=== PATIENT | male | born 2000 | race Caucasian/White ===

== ENCOUNTER 2021-03-26 18:24 | Emergency (ER) | payer BC ==
[~2021-03-26] VITALS: Ht 188 cm; Wt 93.0 kg
[2021-03-26 18:29] VITALS: BP 132/79
--- OUTSIDE RECORDS SUMMARY | 2021-03-26 18:31 | XMS REPORT | Clinical Summary ---
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
--- NOTE | 2021-03-26 18:41 | ED Lower Extremity ---
General Stated Complaint: L LEG INJ Source: patient History of Present Illness Date Seen by Provider: Mar 26, 2021 Time Seen by Provider: 18:29 Initial Comments PT ARRIVES VIA POV FROM HOME WITH GIRLFRIEND PT STATES AROUND 1800 TONIGHT, HE FELL OUT OF A HAMMOCK--FELL APPROXIMATELY 5-6 FEET AND LANDED ON DIRT, HITTING HIS LEFT ANKLE ON WOODEN RAILING DID NOT HIT HEAD AND NO LOSS OF CONSCIOUSNESS ONLY C/O PAIN TO ANTERIOR ASPECT OF LEFT ANKLE HAS MINOR ABRASIONS TO LEFT KNEE AND ANTERIOR LEFT ANKLE. 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 [employer] Allergies and Home Medications Allergies Coded Allergies: No Known Drug Allergies (Unverified , 03/26/21) Patient Home Medication List Home Medication List Reviewed: Yes Naproxen (Naproxen) 500 Mg Tablet.dr, 500 MG PO BID Prescribed by: MAGALIS SONG on 03/26/211906 Review of Systems Constitutional: no symptoms reported EENTM: no symptoms reported Respiratory: no symptoms reported Cardiovascular: no symptoms reported Gastrointestinal: no symptoms reported Genitourinary: no symptoms reported Musculoskeletal: see HPI Skin: see HPI Psychiatric/Neurological: No Symptoms Reported; Denies Headache, Denies Numbness, Denies Paresthesia, Denies Tingling, Denies Weakness Past Zppoyzc-Ordnkv-Kwitcl Hx Patient Social History Tobacco Use?: No Substance use?: Yes Substance type: Marijuana Alcohol Use?: Yes Immunizations Up To Date Tetanus Booster (TDap): Less than 5yrs Past Medical History Surgeries: No Respiratory: No Cardiac: No Neurological: No Genitourinary: No Gastrointestinal: No Musculoskeletal: No Endocrine: No HEENT: No Cancer: No Psychosocial: No Integumentary: No Blood Disorders: No Physical Exam Vital Signs Vital Signs - First Documented 03/26/21 18:29 Temp 36.4 Pulse 80 Resp 20 B/P (MAP) 132/79 (96) Pulse Ox 100 O2 Delivery Room Air Capillary Refill : Height, Weight, BMI Height: '" Weight: lbs. oz. kg; BMI Method: General Appearance: WD/WN, no apparent distress, other (WHEELCHAIR ON ARRIVAL) Neck: non-tender, full range of motion Cardiovascular: normal peripheral pulses, regular rate, rhythm, no murmur Respiratory: chest non-tender, normal breath sounds Gastrointestinal: non tender, soft Back: normal inspection, no CVA tenderness, no vertebral tenderness Hips: bilateral hip normal inspection Legs: right leg normal inspection (EXCEPT FOR TINY ABRASION TO LEFT ANTERIOR MID THIGH. NO SWELLING OR BRUISING OR BLEEDING. NO TENDERNESS. FULL ROM. ) Knees: right knee normal inspection; left knee other (MINOR ABRASION TO LEFT KNEE. NO BLEEDING. FULL ROM WITHOUT DIFFICULTY. NO SWELLING OR BRUISING. NO BONY TENDERNESS ) Ankles: right ankle normal inspection; left ankle other (ANTERIOR ASPECT OF LEFT ANKLE WITH MILD ABRASION, SLIGHT BRUISING AND SWELLING. TENDERNESS TO ANTERIOR ASPECT OF LEFT ANKLE. LIMITED ROM AT ANKLE DUE TO PAIN, BUT DISTAL ROM OF FOOT AND TOES IS NORMAL. SENSORY / VASCULAR INTACT. ) Feet: right foot normal inspection; left foot other ( ABOVE--NO OBVIOUS INJURY TO LEFT FOOT.) Neurologic/Tendon: normal sensation, normal motor functions, normal tendon functions Neurologic/Psychiatric: communication assistant II-XII nml as tested, no motor/sensory deficits, alert, normal mood/affect, oriented x 3 Skin: normal color, warm/dry, other ( ABOVE) Procedures/Interventions Splinting and Joint Reduction : Vishal wrap: Yes Immobilizers: Step Light Walker s/m/lg Progress/Results/Core Measures Results/Orders My Orders Orders - NOHEMI,MAGALIS K DO Tibia/Fibula, Left, 2 Views (03/26/21 18:35) Foot, Left, 3 Views (03/26/21 18:35) Ankle, Left, 3 Views (03/26/21 18:35) Vishal Bandage (03/26/21 19:07) Wound Dressing-Ed (03/26/21 19:07) Steplite (03/26/21 19:07) Rx-Naproxen (Rx-Naprosyn) (03/26/21 19:07) Vital Signs/I&O 03/26/21 18:29 Temp 36.4 Pulse 80 Resp 20 B/P (MAP) 132/79 (96) Pulse Ox 100 O2 Delivery Room Air Diagnostic Imaging Comments XRAYS PER RADIOLOGIST REPORTS AT 1901 LEFT TIB-FIB-- IMPRESSION: Negative radiographs of left lower leg. LEFT ANKLE-- IMPRESSION: Negative radiographs of left ankle. LEFT FOOT-- IMPRESSION: Negative radiographs of the left foot. Reviewed: Reviewed by Me Departure Impression Primary Impression: LEFT ANKLE SPRAIN AND CONTUSION Additional Impressions: Minor abrasion S/P FALL FROM HAMMOCK Disposition: 01 HOME, SELF-CARE Condition: Stable Departure-Patient Inst. Decision time for Depature: 19:02 Referrals: ROMEO WHITESIDE MD Patient Instructions: Ankle Sprain (DC), Contusion (DC), How to Use an Elastic Bandage, Skin Abrasions (DC), Walking Boot Add. Discharge Instructions: ICE TO AREA AT 20 MINUTE INTERVALS ELEVATE FOOT MUCH POSSIBLE WEAR BOOT NEEDED FOR COMFORT TYLENOL NEEDED FOR PAIN FOLLOW UP WITH [facility]SU CLINIC IN 5-7 DAYS FOR RECHECK/FURTHER CARE Scripts Naproxen (Naproxen) 500 Mg Tablet. 500 MG PO BID, #20 TAB Prov: MAGALIS SONG DO 03/26/21 MAGALIS SONG DO Mar 26, 2021 18:41
--- NOTE | 2021-03-26 18:59 | Diagnostic Imaging Report ---
INDICATION: Leg pain. Fall from hammock. FINDINGS: AP and lateral views of the left lower leg demonstrate no cortical disruption of the left tibia or fibula. There is no suspicious bone lesion. Alignment at the knee and ankle is grossly unremarkable. There is no soft tissue gas or radiodense foreign body. IMPRESSION: Negative radiographs of left lower leg. Dictated by: Dictated on workstation # [id number]
--- NOTE | 2021-03-26 19:00 | Diagnostic Imaging Report ---
EXAMINATION: Left ankle series. INDICATION: Ankle pain. Fall from hammock. FINDINGS: The distal tibia and fibula are unremarkable without cortical disruption. There is no widening of the ankle mortise. Talar dome is normal in morphology. The visualized portion of the hindfoot demonstrates no acute process. There ia a probable os cuboideum. IMPRESSION: Negative radiographs of left ankle. Dictated by: Dictated on workstation # [id number]
--- NOTE | 2021-03-26 19:01 | Diagnostic Imaging Report ---
EXAMINATION: Left foot series. INDICATION: Foot pain. Fall from hammock. FINDINGS: Alignment of the left foot is appropriate. There are no findings of joint dislocation. There is no cortical disruption present to suggest an acute fracture. There is a probable os cuboideum. There is no focal soft tissue abnormality or foreign body. IMPRESSION: Negative radiographs of the left foot. Dictated by: Dictated on workstation # [id number]
[2021-03-26] MEDS ORDERED: NAPR500T8 PO (19:07)
[2021-03-26] MEDS ORDERED: RX-NAPROXEN (NAPROSYN) 250 MG TAB PPK#4 PO STA (19:07)
== END 2021-03-26 19:16 | disposition home or self-care (01) ==
LOC: ER 18:28
DX: S93.402A Sprain of unspecified ligament of left ankle, initial encounter (principal); S70.312A Abrasion, left thigh, initial encounter; S80.212A Abrasion, left knee, initial encounter; W22.8XXA Striking against or struck by other objects, initial encounter
CPT/HCPCS: 73590; 73610; 73630; 99282; L2114